=== PATIENT | female | born 1985 | race Caucasian/White ===

== ENCOUNTER 2020-07-28 06:28 | Emergency (ER) | payer OTHER ==
[~2020-07-28] VITALS: Ht 165.1 cm; Wt 72.6 kg
[~2020-07-28 06:28] MED LIST: NORCO 5-325 TA1 EACH PO; VITAMINS
[2020-07-28 07:48] LABS: ABSOLUTE NEUTROPHILS 3.7 thou/uL (1.4-8.2); BASOPHILS 1.1 % (0.0-2.0); HEMATOCRIT 38.6 % (37.0-47.0); LYMPHOCYTES 32.2 % (24.0-44.0); MCH 32.8 pg (26.0-34.0); MCHC 33.8 g/dL (28.0-37.0); MCV 97.1 fL (80.0-100.0); MONOCYTES 5.8 % (1.0-8.0); PLATELET COUNT 178 thou/uL (150-400); POLYS 58.9 % (36.0-66.0); RBC 3.97 mil/uL (4.20-5.00); RDW 12.7 % (10.5-14.5); WBC 6.2 thou/uL (4.0-11.0)
[2020-07-28 08:00] LABS: CALCIUM 8.8 mg/dL (8.5-10.1); CREATININE 0.9 mg/dL (0.6-1.0); POTASSIUM 3.4 mmol/L (3.5-5.1)
[2020-07-28 08:07] LABS: ALBUMIN 3.5 g/dL (3.4-5.0); TOTAL BILIRUBIN 0.3 mg/dL (0.2-1.0); TOTAL PROTEIN 7.3 g/dL (6.4-8.2)
[2020-07-28] MEDS ORDERED: BUTALB-APAP-CA1 EACH PO (11:43)
[2020-07-28 12:34] VITALS: BP 99/60
== END 2020-07-28 12:34 | disposition home or self-care (01) ==
LOC: ER 06:28
PROVIDERS: Emergency Medicine
DX: R51.9 Headache, unspecified (principal); Z79.899 Other long term (current) drug therapy

== ENCOUNTER 2020-08-18 09:44 | Emergency (ER) | payer OTHER ==
[~2020-08-18] VITALS: Ht 165.1 cm; Wt 72.6 kg
[~2020-08-18 09:44] MED LIST changes: +BUTALB-APAP-CA1 EACH PO
[2020-08-18] MEDS ORDERED: METHADONE HCL5 MG PO (10:01)
[2020-08-18] MEDS ORDERED: NORCO5 PO (11:34)
[2020-08-18 12:14] VITALS: BP 108/63
== END 2020-08-18 12:15 | disposition home or self-care (01) ==
LOC: ER 09:44
DX: S22.32XA Fracture of one rib, left side, initial encounter for closed fracture (principal); Z79.899 Other long term (current) drug therapy; V49.59XA Passenger injured in collision with other motor vehicles in traffic accident, initial encounter; Y93.89 Activity, other specified; Y92.413 State road as the place of occurrence of the external cause; Y99.9 Unspecified external cause status